=== PATIENT | male | born 1955 | race Caucasian/White ===

== ENCOUNTER 2022-02-27 00:49 | Inpatient (IN) ==
[2022-02-27] MEDS ORDERED: Naloxone 0.4 MG/ML INJ IVP PRN (05:52)
[2022-02-27] MEDS ORDERED: *HR* Promethazine 25 MG/ML VIAL IM PRN (05:52)
[2022-02-27] MEDS ORDERED: Acetaminophen 325 MG TABLET PO PRN (05:52)
[2022-02-27] MEDS ORDERED: Ondansetron 4 MG/2 ML VIAL IVP PRN (05:52)
[2022-02-27] MEDS ORDERED: *HR* HYDROcodone/Acet 5/325 mg TABLET PO PRN (05:52)
[2022-02-27] MEDS ORDERED: Vancomycin 0 MG in 0.9 % Sodium Chloride 250 ML IVPB SCH (06:00)
[2022-02-27] MEDS ORDERED: 0.9 % Sodium Chloride 1,000 ML IVC SCH ×2 (06:00→09:15)
[2022-02-27] MEDS ORDERED: Vancomycin 1,750 MG/517.5 ML IV.SOLN IVPB ONE (06:28)
[2022-02-27 06:57] LABS: Red Cell Distribution Width 12.6 % (11.5-14.5)
[2022-02-27 06:59] LABS: Hematocrit 44.3 % (37.5-50.1); Hemoglobin 14.6 g/dL (12.9-16.9); Mean Corpuscular Hemoglobin 30.3 pg (28.0-33.3); Mean Corpuscular Volume 91.9 fL (83.0-100.0); Mean Platelet Volume 8.8 fL (9.4-12.4); Platelet Count 284 K/mcL (140-400); Red Blood Count 4.82 M/mcL (4.19-5.50)
[2022-02-27 07:02] LABS: White Blood Count 31.5 K/mcL (4.3-11.1)
[2022-02-27 07:18] LABS: Alanine Aminotransferase 9 Units/L (7-52); Albumin 3.2 g/dL (3.5-5.7); Albumin/Globulin Ratio 0.9 (1.1-2.2); Alkaline Phosphatase 52 Units/L (34-104); Aspartate Amino Transferase 12 Units/L (13-39); BUN/Creatinine Ratio 12 (6-26); Bilirubin,Total 1.3 mg/dL (0.3-1.0); Blood Urea Nitrogen 16 mg/dL (8-23); Calcium 8.2 mg/dL (8.6-10.3); Carbon Dioxide 24 mEq/L (23-29); Chloride 99 mEq/L (98-107); Globulin 3.7 g/dL (2.4-3.5); Glucose 137 mg/dL (70-105); Magnesium 1.3 mg/dL (1.6-2.6); Osmolality,Calculated 275 (280-300); Phosphorous 1.7 mg/dL (2.7-4.5); Potassium 3.7 mEq/L (3.5-5.1); Sodium 131 mEq/L (136-145); Total Protein 6.9 g/dL (6.4-8.9); eGFR For African Americans > 60 (> 60); eGFR For Non-African Americans 51 (> 60)
[2022-02-27 07:24] LABS: INR 1.6; Prothrombin Time 18.2 Seconds (9.4-12.1)
[2022-02-27] MEDS ORDERED: Piperacillin/Tazobactam 3.375 GM in 0.9 % Sodium Chloride Mini Bag 100 ML IVPB SCH (08:00)
[2022-02-27 08:54] LABS: Lymphocytes # 1.3 K/mcL (0.6-4.6); Monocytes # 2.5 K/mcL (0.0-1.3); Neutrophils # 27.7 K/mcL (1.6-8.9); Platelet Estimate Normal (Normal)
[2022-02-27] MEDS: Piperacillin/Tazobactam 3.375 GM in 0.9 % Sodium Chloride Mini Bag 100 ML IVPB SCH ×2 (12:15→20:12)
[2022-02-27] MEDS: *HR* Heparin 5,000 UNIT/ML VIAL SQ SCH ×2 (13:02→20:24)
[2022-02-27] MEDS: Vancomycin 1,750 MG/517.5 ML IV.SOLN IVPB SCH (20:12)
[2022-02-27] MEDS: Melatonin 3 MG TABLET PO PRN (20:13)
[2022-02-28 01:56] LABS: Basophils # 0.1 K/mcL (0.0-0.2); Basophils % 0.2 %; Eosinophils % 0.2 %; Hematocrit 42.4 % (37.5-50.1); Hemoglobin 13.8 g/dL (12.9-16.9); Immature Granulocytes % 0.7 % (0-4); Lymphocytes # 1.1 K/mcL (0.6-4.6); Lymphocytes % 4.3 %; Mean Corpuscular HGB Conc 32.5 g/dL (31.6-35.5); Mean Corpuscular Hemoglobin 30.3 pg (28.0-33.3); Mean Corpuscular Volume 93.2 fL (83.0-100.0); Monocytes % 4.1 %; Neutrophils # 22.3 K/mcL (1.6-8.9); Platelet Count 276 K/mcL (140-400); Red Blood Count 4.55 M/mcL (4.19-5.50); Red Cell Distribution Width 12.8 % (11.5-14.5); Segmented Neutrophils % 90.5 %; White Blood Count 24.6 K/mcL (4.3-11.1)
[2022-02-28 02:10] LABS: BUN/Creatinine Ratio 12 (6-26); Blood Urea Nitrogen 15 mg/dL (8-23); Calcium 8.1 mg/dL (8.6-10.3); Carbon Dioxide 26 mEq/L (23-29); Chloride 104 mEq/L (98-107); Glucose 115 mg/dL (70-105); Magnesium 2.1 mg/dL (1.6-2.6); Osmolality,Calculated 282 (280-300); Phosphorous 1.8 mg/dL (2.7-4.5); Potassium 3.7 mEq/L (3.5-5.1); Sodium 135 mEq/L (136-145); eGFR For African Americans > 60 (> 60); eGFR For Non-African Americans 59 (> 60)
[2022-02-28 02:19] LABS: Eosinophils # 0.1 K/mcL (0.0-0.6)
[2022-02-28 02:45] LABS: Platelet Estimate Normal (Normal)
[2022-02-28] MEDS: Piperacillin/Tazobactam 3.375 GM in 0.9 % Sodium Chloride Mini Bag 100 ML IVPB SCH ×3 (04:39→21:10)
[2022-02-28] MEDS: *HR* Heparin 5,000 UNIT/ML VIAL SQ SCH (05:49)
[2022-02-28] MEDS: Vancomycin 1,750 MG/517.5 ML IV.SOLN IVPB SCH (08:10)
[2022-02-28] MEDS: Apixaban 5 MG TABLET PO SCH ×2 (09:34→21:11)
[2022-02-28] MEDS: Budesonide/Formoterol 160/4.5 1 PUFF INH IH SCH ×2 (10:11→20:26)
[2022-02-28] MEDS: Tiotropium 10 INH DOSE IH SCH (10:11)
[2022-02-28] MEDS ORDERED: *HR* Metoprolol 5 MG/5 ML VIAL IVP PRN (13:10)
[2022-02-28] MEDS: Doxycycline 100 MG CAPSULE PO SCH (21:11)
[2022-02-28] MEDS: Melatonin 3 MG TABLET PO PRN (21:13)
[2022-03-01 01:46] LABS: Basophils # 0.1 K/mcL (0.0-0.2); Basophils % 0.3 %; Eosinophils % 0.1 %; Hematocrit 41.5 % (37.5-50.1); Hemoglobin 13.6 g/dL (12.9-16.9); Immature Granulocytes % 0.9 % (0-4); Lymphocytes # 1.2 K/mcL (0.6-4.6); Lymphocytes % 6.8 %; Mean Corpuscular HGB Conc 32.8 g/dL (31.6-35.5); Mean Corpuscular Hemoglobin 30.6 pg (28.0-33.3); Mean Corpuscular Volume 93.5 fL (83.0-100.0); Mean Platelet Volume 8.9 fL (9.4-12.4); Monocytes # 0.8 K/mcL (0.0-1.3); Monocytes % 4.6 %; Neutrophils # 15.1 K/mcL (1.6-8.9); Platelet Count 289 K/mcL (140-400); Red Blood Count 4.44 M/mcL (4.19-5.50); Red Cell Distribution Width 12.7 % (11.5-14.5); Segmented Neutrophils % 87.3 %; White Blood Count 17.3 K/mcL (4.3-11.1)
[2022-03-01 02:12] LABS: BUN/Creatinine Ratio 13 (6-26); Blood Urea Nitrogen 13 mg/dL (8-23); Carbon Dioxide 25 mEq/L (23-29); Chloride 103 mEq/L (98-107); Glucose 108 mg/dL (70-105); Osmolality,Calculated 281 (280-300); Potassium 3.7 mEq/L (3.5-5.1); Sodium 135 mEq/L (136-145); eGFR For African Americans > 60 (> 60); eGFR For Non-African Americans > 60 (> 60)
[2022-03-01] MEDS: Piperacillin/Tazobactam 3.375 GM in 0.9 % Sodium Chloride Mini Bag 100 ML IVPB SCH (04:06)
[2022-03-01] MEDS: Budesonide/Formoterol 160/4.5 1 PUFF INH IH SCH (07:24)
[2022-03-01] MEDS: Tiotropium 10 INH DOSE IH SCH (07:24)
[2022-03-01 07:26] VITALS: BP 125/76; PULSE 78; TEMP 98; O2SAT 96
[2022-03-01 08:12] LABS: Thyroid Stimulating Hormone 1.691 mcIU/mL (0.340-5.600)
[2022-03-01] MEDS ORDERED: Aspirin Enteric Coated 81 MG Tablet PO SCH (09:00)
[2022-03-01] MEDS: Doxycycline 100 MG CAPSULE PO SCH (09:08)
[2022-03-01] MEDS: Apixaban 5 MG TABLET PO SCH (09:08)
== END 2022-03-01 12:40 | disposition home or self-care (01) | DRG 871 ==
LOC: 2ANU → SUATTDRO 05:33
PROVIDERS: ADMIT Internal Medicine; ATTEND Internal Medicine